=== PATIENT | male | born 1985 | race Caucasian/White ===

== ENCOUNTER 2025-01-12 12:34 | Inpatient (IN) | payer BC ==
[2025-01-12 13:01] VITALS: BMI 28.8
[2025-01-12] MEDS ORDERED: NALOXONE (NARCAN) HCL 4 MG/0.1 ML SPRAY NS PRN (14:11)
[2025-01-12] MEDS ORDERED: guaiFENesin 600 MG TABLET.ER (FP) PO PRN (14:11)
[2025-01-12] MEDS ORDERED: IBUPROFEN 600 MG TABLET (FP) PO PRN (14:11)
[2025-01-12] MEDS ORDERED: POLYETHYLENE GLYCOL (HEALTHYLAX) 3350 17 GM PACKET PO PRN (14:11)
[2025-01-12] MEDS ORDERED: METHOCARBAMOL 500 MG TABLET PO PRN (14:11)
[2025-01-12] MEDS ORDERED: BISMUTH SUBSALICYLATE 524 MG/30 ML PO PRN (14:11)
[2025-01-12] MEDS ORDERED: BENZONATATE 200 MG CAPSULE PO PRN (14:11)
[2025-01-12] MEDS ORDERED: LOPERAMIDE HCL 2 MG CAPSULE PO PRN (14:11)
[2025-01-12] MEDS ORDERED: ONDANSETRON *ODT* 4 MG TABLET SL PRN (14:11)
[2025-01-12] MEDS ORDERED: MAGNESIUM HYDROX 2400MG/30ML ORAL SUSPENSION 30 ML CUP PO PRN (14:11)
[2025-01-12] MEDS ORDERED: DICYCLOMINE HCL 10 MG CAPSULE PO PRN (14:11)
[2025-01-12] MEDS ORDERED: BENZOCAINE/MENTHOL (CHLORASEPTIC ) LOZENGE MM PRN (14:11)
[2025-01-12] MEDS ORDERED: MAG HYDROX/AL HYDROX/SIMETH 30 ML UNIT-DOSE CUP PO PRN (14:11)
[2025-01-12] MEDS ORDERED: IBUPROFEN 400 MG TABLET (FP) PO PRN (14:11)
[2025-01-12] MEDS ORDERED: ACETAMINOPHEN 325 MG TABLET (FP) PO PRN (14:11)
[2025-01-12] MEDS ORDERED: NICOTINE 21 MG/24 HOURS TOPICAL PATCH ONE (14:59)
[2025-01-12] MEDS: NICOTINE 21 MG/24 HOURS TOPICAL PATCH TD SCH (15:00)
[2025-01-12] MEDS: MELATONIN 5 MG TABLETS PO SCH (22:21)
[2025-01-12] MEDS: THIAMINE 100 MG TABLET PO SCH (22:21)
[2025-01-13 09:34] LABS: GLUCOSE,RANDOM 96 mg/dL (74-106); TOT PROT 6.8 g/dl (6.4-8.2)
[2025-01-13 09:35] LABS: CO2 28 mmol/L (21-32)
[2025-01-13 09:36] LABS: MCHC 32.8 g/dl (32.3-36.5); MEAN CELL VOLUME 100.6 fl (79.0-92.2); MEAN PLT VOLUME 8.9 fl (9.4-12.4); RDW 13.8 % (12.1-15.9)
[2025-01-13 09:37] LABS: ALK PHOS 98 U/L (40-150)
[2025-01-13 09:40] LABS: CREATININE 0.86 mg/dL (0.55-1.3); SGOT/AST 37 U/L (5-34); SGPT/ALT 34 U/L (0-55)
[2025-01-13] MEDS: PRENATAL VITAMINS W/ FOLIC ACID TABLET (FP) PO SCH (10:30)
[2025-01-13] MEDS: NICOTINE POLACRILEX 4 MG LOZENGE BC PRN (10:32)
[2025-01-13] MEDS: METOPROLOL TARTRATE 25 MG TABLET (FP) PO SCH (11:53)
[2025-01-13] MEDS: NICOTINE POLACRILEX 4 MG GUM BUC PRN (13:47)
[2025-01-14 09:33] VITALS: BP 137/90; PULSE 84; RESP 15; TEMP 97.8
[2025-01-14] MEDS: NALTREXONE HCL 50 MG TABLET PO SCH (10:49)
== END 2025-01-14 11:36 | disposition home or self-care (01) | DRG 775 ==
LOC: YASAS 12:34 → Y6N 15:00
PROVIDERS: ADMIT Psychiatry & Neurology Pain Medicine; ATTEND Counselor Addiction (Substance Use Disorder)
PROC: HZ2ZZZZ Detoxification Services for Substance Abuse Treatment (ICD-10-PCS; principal; 2025-01-12)
DX: F10.230 Alcohol dependence with withdrawal, uncomplicated (principal); F17.210 Nicotine dependence, cigarettes, uncomplicated; I10 Essential (primary) hypertension
CPT/HCPCS: 36415; 80053; 80307; 85027; 86780; 93005; 93010